=== PATIENT | female | born 1990 | race Hispanic/Latino ===

== ENCOUNTER 2025-02-24 13:42 | Observation (INO) | payer BC ==
[2025-02-24 14:12] VITALS: BMI 45.3
[2025-02-24] MEDS ORDERED: hydrALAZINE 20 MG/ML VIAL SLOW IVP PRN (14:19)
[2025-02-24 14:57] LABS: #Basophils 0.03 10x3/uL (0.0-0.2); #Eosinophils 0.10 10x3/uL (0.0-0.5); #Monocytes 0.64 10x3/uL (0.0-1.1); #Neutrophils 6.13 10x3/uL (1.5-8.4); %Basophils 0.3 % (0.0-2.0); %Eosinophils 1.1 % (0.0-6.0); %Lymphocytes 21.3 % (18.0-47.0); %Monocytes 7.3 % (0.0-10.0); %Neutrophils 69.7 % (40.0-75.0); Hematocrit 35.9 % (34.9-44.5); Hemoglobin 11.6 g/dL (12.0-15.5); Mean Corpuscular Hemoglobin 25.4 pg (27.0-33.0); Mean Corpuscular Volume 78.6 fL (81.6-98.3); Platelet Count 227 10x3/uL (150-450); Red Blood Cell (RBC) Count 4.57 10x6/uL (3.90-5.03); White Blood Cell (WBC) Count 8.81 10x3/uL (3.5-10.5)
[2025-02-24 15:08] LABS: ALT (SGPT) 11 U/L (Less than 34); AST (SGOT) 15 U/L (11-34); Albumin 2.8 g/dL (3.1-4.5); Alkaline Phosphatase 128 U/L (40-110); Anion Gap 11 mmol/L (10-20); BUN (Urea Nitrogen) 8 mg/dL (7.0-18.7); Bilirubin, Total 0.4 mg/dL (0.3-1.2); Calc. Creatinine Clearance 262 mL/min (70-130); Calcium 9.2 mg/dL (7.8-10.44); Carbon Dioxide 23 mmol/L (22-29); Chloride 106 mmol/L (98-107); Globulin 3.8 g/dL (2.4-3.5); Glucose 112 mg/dL (70-105); Potassium 3.9 mmol/L (3.5-5.1); Sodium 136 mmol/L (136-145)
[2025-02-25 06:29] LABS: Chlamydia by PCR, Vaginal Swab Not Detected (NotDetected); GC by PCR, Vaginal Swab Not Detected (NotDetected)
[2025-02-26 05:05] LABS: Group B Streptococcus by PCR DETECTED (NotDetected)
== END 2025-02-24 21:01 | disposition home or self-care (01) ==
LOC: CSHLD/OP 13:42 → CSHLD 16:31
PROVIDERS: ADMIT Family Medicine; ATTEND Family Medicine
DX: O12.03 Gestational edema, third trimester (principal); Z3A.33 33 weeks gestation of pregnancy
CPT/HCPCS: 36415; 76817; 80053; 82570; 84156; 85025; 87480; 87491; 87510; 87591; 87653; 87660; 96360; 96361; 99285

== ENCOUNTER 2025-03-24 18:00 | Inpatient (IN) | payer BC ==
[2025-03-25 04:51] VITALS: BMI 43.9
[2025-03-25] MEDS ORDERED: Diphenoxylate HCl/Atropine Tablet PO PRN (05:37)
[2025-03-25] MEDS ORDERED: Acetaminophen 500 MG TAB PO PRN (05:37)
[2025-03-25] MEDS ORDERED: Ibuprofen 800 MG TAB PO PRN (05:37)
[2025-03-25] MEDS ORDERED: Ondansetron PF 4 MG/2 ML Vial IVP PRN ×2 (05:37→10:47)
[2025-03-25] MEDS ORDERED: hydrALAZINE 20 MG/ML VIAL SLOW IVP PRN ×3 (05:37→15:30)
[2025-03-25] MEDS ORDERED: Lidocaine 1% (PF) 30 ML VIAL SC PRN (05:37)
[2025-03-25] MEDS ORDERED: Tranexamic Acid 1,000 MG/10 ML VIAL IVP PRN (05:37)
[2025-03-25] MEDS ORDERED: Oxytocin 30 units/NS 500 ML 500 ML IV SCH ×2 (05:45)
[2025-03-25 05:58] LABS: #Basophils 0.05 10x3/uL (0.0-0.2); #Eosinophils 0.12 10x3/uL (0.0-0.5); #Monocytes 0.54 10x3/uL (0.0-1.1); #Neutrophils 5.09 10x3/uL (1.5-8.4); %Basophils 0.6 % (0.0-2.0); %Eosinophils 1.5 % (0.0-6.0); %Lymphocytes 27.1 % (18.0-47.0); %Monocytes 6.7 % (0.0-10.0); %Neutrophils 63.5 % (40.0-75.0); Hematocrit 37.1 % (34.9-44.5); Hemoglobin 11.8 g/dL (12.0-15.5); Mean Corpuscular Hemoglobin 24.4 pg (27.0-33.0); Mean Corpuscular Volume 76.8 fL (81.6-98.3); Platelet Count 204 10x3/uL (150-450); Red Blood Cell (RBC) Count 4.83 10x6/uL (3.90-5.03); White Blood Cell (WBC) Count 8.02 10x3/uL (3.5-10.5)
[2025-03-25 06:10] LABS: ALT (SGPT) 11 U/L (Less than 34); AST (SGOT) 15 U/L (11-34); Albumin 2.7 g/dL (3.1-4.5); Alkaline Phosphatase 186 U/L (40-110); Anion Gap 15 mmol/L (10-20); BUN (Urea Nitrogen) 13 mg/dL (7.0-18.7); Bilirubin, Total 0.4 mg/dL (0.3-1.2); Calc. Creatinine Clearance 199 mL/min (70-130); Calcium 8.6 mg/dL (7.8-10.44); Carbon Dioxide 20 mmol/L (22-29); Chloride 104 mmol/L (98-107); Globulin 3.4 g/dL (2.4-3.5); Glucose 88 mg/dL (70-105); Potassium 4.0 mmol/L (3.5-5.1); Sodium 135 mmol/L (136-145)
[2025-03-25 06:28] LABS: Hep B Surf Ag - L&D Non-Reactive S/CO (NonReactive)
[2025-03-25 06:30] LABS: Syphilis Antibody Index 0.08 S/CO (<1.00 Non-Reactive)
[2025-03-25 08:29] LABS: Protein, Urine Random Quant 119.0 mg/dL (1-14)
[2025-03-25] MEDS: Penicillin G Potassium 5 MILL.UNITS in Sodium Chloride 0.9% 100 ML IVPB SCH (09:14)
[2025-03-25] MEDS ORDERED: Penicillin G 2.5 MILL.units 2.5 MILL.UNITS in Premix 1 BAG IVPB SCH (09:45)
[2025-03-25] MEDS ORDERED: diphenhydrAMINE 50 MG/ML VIAL IVP PRN (10:47)
[2025-03-25] MEDS ORDERED: Meperidine HCl/PF 25 MG (1 mL) VIAL SLOW IVP PRN (10:47)
[2025-03-25] MEDS ORDERED: Communication Order-Pharmacy FS SCH (11:00)
[2025-03-25] MEDS ORDERED: Bicitra 30 ML UDCUP PO PRN (11:08)
[2025-03-25] MEDS ORDERED: Famotidine/PF 20 mg/2ml Vial SLOW IVP PRN (11:08)
[2025-03-25] MEDS ORDERED: Azithromycin 500 MG in Sodium Chloride 0.9% 250 ML 250 ML IVPB SCH (11:15)
[2025-03-25] MEDS ORDERED: Calcium Gluc 4.6 MEQ/10 ML (100 MG/ML) SLOW IVP PRN (11:27)
[2025-03-25] MEDS: hydrALAZINE 20 MG/ML VIAL SLOW IVP PRN (11:34)
[2025-03-25] MEDS: Magnesium Sulfate 20 gm/500 ml 20 GM/500 ML BAG IVPB SCH (11:36)
[2025-03-25] MEDS: Carboprost 250 MCG/ML AMP IM PRN (14:45)
[2025-03-25] MEDS: Diphenoxylate HCl/Atropine Tablet PO PRN (14:48)
[2025-03-25 14:56] LABS: Analyzer IN Cardio CS NICU; RapidComm Collect By OR Nurse; pH (Cord, venous) 7.046 (7.250-7.350)
[2025-03-25 14:57] LABS: Analyzer IN Cardio CS NICU; RapidComm Collect By OR Nurse
[2025-03-25] MEDS ORDERED: Lanolin Ointment 7 GM TUBE TOP PRN (15:30)
[2025-03-25] MEDS ORDERED: Bisacodyl 10 MG SUPP PR PRN (15:30)
[2025-03-25] MEDS ORDERED: Acetaminophen 325 MG TAB PO PRN (15:30)
[2025-03-25] MEDS: Ondansetron PF 4 MG/2 ML Vial IVP PRN (20:11)
[2025-03-25] MEDS: Ketorolac Tromethamine 30 MG (1 mL) VIAL IVP SCH (20:15)
[2025-03-25] MEDS ORDERED: HYDROcodone/Acetaminophen 5/325 mg Tablet PO PRN (23:00)
[2025-03-26 03:42] LABS: Hematocrit 31.6 % (34.9-44.5); Hemoglobin 10.4 g/dL (12.0-15.5); Mean Corpuscular Hemoglobin 24.7 pg (27.0-33.0); Mean Corpuscular Volume 75.1 fL (81.6-98.3); Platelet Count 204 10x3/uL (150-450); Red Blood Cell (RBC) Count 4.21 10x6/uL (3.90-5.03); White Blood Cell (WBC) Count 12.06 10x3/uL (3.5-10.5)
[2025-03-26] MEDS: Ferrous Sulfate 325 MG TAB PO SCH (08:17)
[2025-03-26] MEDS: NIFEdipine XL 30 MG ER.TAB PO SCH ×2 (08:17→20:27)
[2025-03-26] MEDS: HYDROcodone/Acetaminophen 5/325 mg Tablet PO PRN (17:45)
[2025-03-26] MEDS: Ketorolac Tromethamine 30 MG (1 mL) VIAL ONE (20:27)
[2025-03-26] MEDS: Magnesium Sulfate 20 gm/500 ml 20 GM/500 ML BAG ONE ×2 (20:27→20:29)
[2025-03-26] MEDS: Tranexamic Acid 1,000 MG/10 ML VIAL ONE (20:28)
[2025-03-26] MEDS: Phenylephrine 40 MG/NS 250 ML 250 ML ONE ×2 (20:28)
[2025-03-26] MEDS: Ondansetron PF 4 MG/2 ML Vial ONE (20:28)
[2025-03-26] MEDS: Oxytocin 10 UNITS/ML VIAL ONE (20:28)
[2025-03-26] MEDS: Boostrix 0.5 ML (Tdap) VIAL (>/=7 yrs of age) IM ONE (20:28)
[2025-03-26] MEDS: Dexamethasone 10 MG/ML VIAL ONE (20:28)
[2025-03-26] MEDS ORDERED: NIFEdipine XL 30 MG ER.TAB PO SCH (21:00)
[2025-03-26] MEDS ORDERED: Ibuprofen 800 MG TAB PO SCH (22:00)
[2025-03-27] MEDS: Ibuprofen 800 MG TAB PO SCH (01:47)
[2025-03-27] MEDS: Simethicone Chewable 80 MG TAB PO PRN (04:41)
[2025-03-27] MEDS: Furosemide 40 MG (4 mL) VIAL SLOW IVP SCH (09:57)
[2025-03-28] MEDS: NIFEdipine XL 30 MG ER.TAB PO SCH (12:38)
[2025-03-28 16:36] VITALS: BP 144/86; TEMP 98.1
[2025-03-29] MEDS ORDERED: NIFEdipine XL 60 MG ER.TAB PO SCH (09:00)
== END 2025-03-28 18:22 | disposition home or self-care (01) | DRG 788 ==
LOC: CSHLD 03-25 03:05 → CSHANTE 03-26 19:50
PROVIDERS: ADMIT Family Medicine; ATTEND Family Medicine
PROC: 10D00Z1 Extraction of Products of Conception, Low, Open Approach (ICD-10-PCS; principal; 2025-03-25)
DX: O14.14 Severe pre-eclampsia complicating childbirth (principal); O99.344 Other mental disorders complicating childbirth; O99.824 Streptococcus B carrier state complicating childbirth; F41.8 Other specified anxiety disorders; O99.214 Obesity complicating childbirth; O40.3XX0 Polyhydramnios, third trimester, not applicable or unspecified; Z37.0 Single live birth; Z3A.37 37 weeks gestation of pregnancy
CPT/HCPCS: 36415; 36416; 51702; 80053; 82570; 82805; 84156; 85025; 85027; 86780; 86850; 86900; 86901; 87340; J0360; J1100; J1885; J1940; J2274; J2540; J2590; J3475; J3490